=== PATIENT | male | born 1960 | race Caucasian/White ===

== ENCOUNTER 2019-12-17 18:58 | Inpatient (IN) | payer OTHER ==
[~2019-12-17] VITALS: Ht 182.9 cm; Wt 123.8 kg
[2019-12-17 19:10] VITALS: BP 131/84
[2019-12-17] MEDS ORDERED: VENTOLIN HFA 1818 GM INH (19:12)
[2019-12-17] MEDS ORDERED: BACTRIM DS TAB1 EAC1 PO (19:12)
[2019-12-17 19:49] LABS: ABSOLUTE BASOPHILS 0.1 thou/uL (0.0-0.2); ABSOLUTE MONOCYTES 0.4 thou/uL (0.0-1.2); ABSOLUTE NEUTROPHILS 4.8 thou/uL (1.6-8.1); BASOPHILS 0.8 %; EOSINOPHILS 0.2 %; HEMATOCRIT 40.3 % (42.0-52.0); LYMPHOCYTES 15.4 %; MCH 29.7 pg (26.0-34.0); MCHC 34.8 g/dL (28.0-37.0); MCV 85.1 fL (80.0-100.0); MONOCYTES 6.1 %; MPV 9.1 fl. (7.2-11.1); NUCLEATED RBCS 0 /100WBC; PLATELET COUNT* 211 thou/uL (150-400); POLYS 77.5 %; RBC 4.73 mil/uL (4.50-6.00); RDW-CV 14.1 % (10.5-14.5); WBC 6.2 thou/uL (4.0-11.0)
[2019-12-17 19:55] LABS: BE -0.6 mmol/L (-2 to +3); PCO2 26.3 mmHg (35.0-45.0); PO2 74.5 mmHg (75.0-100.0); pH 7.516 (7.340-7.450)
[2019-12-17 19:58] LABS: CALCIUM 8.6 mg/dL (8.5-10.1); POTASSIUM 3.5 mmol/L (3.5-5.1)
[2019-12-17 20:00] VITALS: BP 137/81
[2019-12-17 20:03] LABS: ALBUMIN 2.9 g/dL (3.4-5.0); MAGNESIUM 2.1 mg/dL (1.8-2.4); TOTAL BILIRUBIN 0.7 mg/dL (<0.1-1.0); TOTAL PROTEIN 7.5 g/dL (6.4-8.2)
[2019-12-17 20:05] LABS: INFLUENZA A ANTIGEN Negative (Negative); INFLUENZA B ANTIGEN Negative (Negative)
[2019-12-17 22:07] VITALS: BP 125/80
[2019-12-17 23:00] VITALS: BP 137/81
[2019-12-17 23:35] LABS: URINE CLARITY CLEAR; URINE COLOR YELLOW; URINE GLUCOSE-RANDOM NEGATIVE (Negative); URINE KETONES NEGATIVE (Negative); URINE LEUKOCYTES-REFLEX NEGATIVE (Negative); URINE NITRITE-REFLEX NEGATIVE (Negative); URINE PROTEIN 1+ (Negative); URINE UROBILINOGEN 0.2 E.U./dl (0.2-1.0)
[2019-12-17 23:41] LABS: URINE BILIRUBIN 1+ (Negative); URINE BLOOD NEGATIVE (Negative)
[2019-12-17 23:42] LABS: ICTOTEST (BILI CONFIRMATORY) Negative (Negative)
[2019-12-18 04:52] VITALS: BP 122/77
[2019-12-18] MEDS ORDERED: VITAMIN D3250 MC1 PO (06:58)
[2019-12-18] MEDS ORDERED: ZINC SULFATE220 MG PO (06:58)
[2019-12-18 07:45] VITALS: BP 129/69
--- NOTE | 2019-12-18 08:28 | EKG ---
[place] [address] ELECTROCARDIOGRAM REPORT Name: ANGELADEVANTE Room: [address] ADM IN M.R.#: [id number] Admission: 12/17/19 Attend Phys: Gee Ramirez Discharge: Date of : 62 Date of Service: 12/17/191926 Report #: [id number] THIS REPORT FOR: //name// [facility] ED Test Date: 2019-12-17 Test Time: 19:27:03 Pat Name: DEVANTE MILLER Department: Room: [facility] Gender: M General Neurologist: LUIS : 1960 Requested By: Belem Ortiz Order Number: [id number] MD: Hero Horowitz Measurements Intervals [place] Rate: 115 P: 6 MD: 161 QRS: 22 QRSD: 96 T: 11 QT: 294 QTc: 407 Interpretive Statements Sinus tachycardia No previous ECG available for comparison Electronically Signed On 12-18-2019 8:28:07 CDT by Hero Horowitz [email or web address] <ELECTRONICALLY SIGNED> By: Hero Horowitz MD, [facility] 12/18/19827 26 26 Hero Horowitz MD, [facility] /EPI
[2019-12-18 12:00] VITALS: BP 116/74
[2019-12-18 13:43] LABS: CALCIUM 8.5 mg/dL (8.5-10.1); CREATININE 0.8 mg/dL (0.6-1.3); POTASSIUM 3.5 mmol/L (3.5-5.1)
[2019-12-18 13:46] LABS: MAGNESIUM 2.1 mg/dL (1.8-2.4); PHOSPHORUS* 2.5 mg/dL (2.5-4.9)
[2019-12-18 16:00] VITALS: BP 123/81
[2019-12-18 18:41] LABS: INR 1.1
[2019-12-18 20:34] VITALS: BP 145/92
[2019-12-18 23:56] VITALS: BP 114/73
[2019-12-19 04:00] VITALS: BP 130/86
[2019-12-19 05:10] LABS: ABSOLUTE LYMPHOCYTES 0.8 thou/uL (0.8-5.3); ABSOLUTE MONOCYTES 0.2 thou/uL (0.0-1.2); ABSOLUTE NEUTROPHILS 4.9 thou/uL (1.6-8.1); BASOPHILS 0.2 %; HEMATOCRIT 37.3 % (42.0-52.0); HEMOGLOBIN 12.8 gm/dL (14.0-18.0); LYMPHOCYTES 14.2 %; MCH 29.5 pg (26.0-34.0); MCHC 34.3 g/dL (28.0-37.0); MCV 86.1 fL (80.0-100.0); MONOCYTES 3.5 %; MPV 9.2 fl. (7.2-11.1); NUCLEATED RBCS 0 /100WBC; PLATELET COUNT* 244 thou/uL (150-400); POLYS 82.1 %; RBC 4.33 mil/uL (4.50-6.00); RDW-CV 14.2 % (10.5-14.5); WBC 5.9 thou/uL (4.0-11.0)
[2019-12-19 05:38] LABS: ALBUMIN 2.4 g/dL (3.4-5.0); CALCIUM 8.7 mg/dL (8.5-10.1); CREATININE 0.8 mg/dL (0.6-1.3); MAGNESIUM 2.3 mg/dL (1.8-2.4); POTASSIUM 3.7 mmol/L (3.5-5.1); TOTAL BILIRUBIN 0.5 mg/dL (<0.1-1.0); TOTAL PROTEIN 7.1 g/dL (6.4-8.2)
[2019-12-19 09:00] VITALS: BP 124/77
[2019-12-19 12:10] VITALS: BP 130/76
[2019-12-19 16:00] VITALS: BP 130/72
[2019-12-19 20:39] VITALS: BP 131/75
[2019-12-20] VITALS: BP 126/72
[2019-12-20 04:00] VITALS: BP 145/86
[2019-12-20 05:46] LABS: HEMATOCRIT 38.5 % (42.0-52.0); HEMOGLOBIN 13.2 gm/dL (14.0-18.0); MCH 29.1 pg (26.0-34.0); MCHC 34.2 g/dL (28.0-37.0); MCV 85.1 fL (80.0-100.0); MPV 9.3 fl. (7.2-11.1); NUCLEATED RBCS 0 /100WBC; PLATELET COUNT* 313 thou/uL (150-400); RBC 4.52 mil/uL (4.50-6.00); RDW-CV 14.1 % (10.5-14.5); WBC 15.2 thou/uL (4.0-11.0)
[2019-12-20 05:59] LABS: ALBUMIN 2.4 g/dL (3.4-5.0); CALCIUM 8.9 mg/dL (8.5-10.1); CREATININE 0.9 mg/dL (0.6-1.3); MAGNESIUM 2.1 mg/dL (1.8-2.4); POTASSIUM 3.7 mmol/L (3.5-5.1); TOTAL BILIRUBIN 0.4 mg/dL (<0.1-1.0); TOTAL PROTEIN 6.9 g/dL (6.4-8.2)
[2019-12-20 07:30] LABS: ABSOLUTE LYMPHOCYTES 1.4 thou/uL (0.8-5.3); ABSOLUTE MONOCYTES 0.6 thou/uL (0.0-1.2); ABSOLUTE NEUTROPHILS 13.2 thou/uL (1.6-8.1); ANISOCYTOSIS 1+; PLATELET ESTIMATE ADEQUATE; POIKILOCYTOSIS 1+
[2019-12-20 08:45] VITALS: BP 124/85
[2019-12-20 11:57] VITALS: BP 118/74
[2019-12-20 16:06] VITALS: BP 110/77
[2019-12-20 20:59] VITALS: BP 127/84
[2019-12-21 00:27] VITALS: BP 132/91
[2019-12-21 04:00] VITALS: BP 139/82
[2019-12-21 13:03] VITALS: BP 137/92
[2019-12-21 16:48] VITALS: BP 138/79
[2019-12-21 20:00] VITALS: BP 156/89
[2019-12-22] VITALS: BP 130/81
[2019-12-22 04:00] VITALS: BP 135/81
[2019-12-22] MEDS ORDERED: PREDNISONE 10 M10 MG PO (07:43)
[2019-12-22] MEDS ORDERED: DOXYCYCLINE 10100 MG PO (07:43)
[2019-12-22 08:30] VITALS: BP 134/87
[2019-12-22 12:06] VITALS: BP 134/87
--- NOTE | 2019-12-24 12:58 | CON ---
[address] [address] CONSULTATION Name: DEVANTE MILLER JR Room: [address]#: [id number] Admission: 12/17/19 Attend Phys: Gee Abarca, Discharge: 12/22/19 Date of : 62 Report #: [id number] THIS REPORT FOR: //name// cc: Isabel Brooks MD, Ami MD ~ DATE OF SERVICE: 12/18/2019 CONSULT REQUESTED BY: Piotr Nolan DO. INDICATION FOR CONSULTATION: Acute hypoxemic respiratory failure. HISTORY OF PRESENT ILLNESS: This is a 59-year-old gentleman who has an extensive history of smoking in the past. He has not been diagnosed with cardiac or respiratory disease in the past; however, it is possible that he has previously undiagnosed chronic obstructive pulmonary disease as well as previously undiagnosed obstructive sleep apnea. The patient's is reported to be positive for COVID-19. The patient has had close contact with his . The patient has now presented with increasing shortness of breath over the last 2-3 days. He has also had headaches. He has been fatigued. He has been having fever and chills. The patient has also been hypoxemic. Currently, he is requiring 5 liters of oxygen to maintain O2 saturation in the low 90s. The patient's initial O2 saturation was 83% on room air. The patient's chest x-ray shows extensive infiltrates. Since admission yesterday, the patient has received corticosteroids. He does report some improvement in his shortness of breath since yesterday. REVIEW OF SYSTEMS. The patient answered to the negative for 12 questions for review of systems except as mentioned above. PAST MEDICAL HISTORY: Knee surgery, shoulder surgery, hypoglycemia, etiology not known to me. CURRENT MEDICATIONS: List in Going reviewed. HOME MEDICATIONS: List in Going reviewed. While not having a diagnosis of obstructive lung disease on the records, note that he is on albuterol inhaler at home p.r.n. FAMILY HISTORY: has COVID-19. SOCIAL HISTORY: Extensive history of smoking more than a pack a day, but discontinued about 10 years ago. He uses about 12 bottles of alcohol likely beer a week. No known history of illegal drug use. ALLERGIES: [place] [address] CONSULTATION Name: DEVANTE MILLER JR Room: [address]#: [id number] Admission: 12/17/19 Attend Phys: Gee Abarca, Discharge: 12/22/19 Date of : 62 Report #: [id number] PHYSICAL EXAMINATION: GENERAL: He is alert, awake and oriented. He is sitting comfortably in a chair. VITAL SIGNS: He has a pulse of 92 and a blood pressure of 123/81. He is on 5 liters of nasal cannula, last O2 saturation is 94%. He is afebrile with a temperature of 36.3. Earlier today, he had a high-grade fever of 38.8 degrees Celsius. The respiratory rate is 18. HEENT: Head is normocephalic and atraumatic. NECK: Does not show raised JVP, asymmetry, mass or lymph nodes. CHEST: Symmetrical expansion on inspection and palpation. On auscultation, breath sounds are significantly decreased. Expirations are prolonged. I do not hear any added sounds. HEART: Regular. There is no murmur. ABDOMEN: Soft and nontender. EXTREMITIES: Lower extremities do show trace edema bilaterally. SKIN: Dry and intact. NEUROLOGICAL: Moves all extremities bilaterally equally and spontaneously with no focal deficit identified. LABORATORY DATA: The patient's chest x-ray from yesterday shows extensive bilateral infiltrates consistent with COVID-19. The patient's lab work is in Going and this is reviewed. The patient's COVID-19 antigen is negative; however, his COVID PCR is pending. The patient's lab work is in Going and this is reviewed. I just ordered coagulation studies, these are pending at this time. ASSESSMENT AND PLAN: 1. Acute hypoxemic respiratory failure. The patient's history is consistent with COVID-19 leading to acute respiratory failure. There does appear to be a component of bronchospasm as well. In addition, he may have secondary bacterial infection as well. 2. COVID-19 at this time, I would treat him as COVID-19. Note that his antigen is negative, but his history is strongly consistent with COVID-19, also his with whom he has had close contact is known to have COVID-19. Therefore, even if the PCR is negative, I will be inclined to repeat it and in that case, we will likely get COVID-19 antibodies. Meantime, we will continue to treat him as COVID-19. I am increasing the dose of steroids as below. In addition, I will go ahead and start him on remdesivir. 3. Pulmonary infiltrates. I will also treat him for possible secondary bacterial infections. Doxycycline and ceftriaxone are ordered. If able to, I recommend obtaining a nasal swab for methicillin-resistant Staphylococcus aureus as well as a sputum culture. 4. Bronchospasm/suspected chronic obstructive pulmonary disease exacerbation. It appears likely to me that the patient has underlying chronic obstructive pulmonary disease. Physical examination findings today are consistent with a [address] [place] [address] CONSULTATION Name: DEVANTE MILLER JR Room: [address]#: [id number] Admission: 12/17/19 Attend Phys: Gee Abarca, Discharge: 12/22/19 Date of : 62 Report #: [id number] component of bronchospasm. We therefore increased the dose of dexamethasone. We will also order albuterol via inhaler. In case the patient's condition worsens, we will consider transferring him to a negative pressure room for administration of nebulizers. 5. Suspected underlying obstructive sleep apnea. Body mass index is elevated. Again if he worsens, I would recommend that in that case, consider transferring him to a negative pressure room for administration for BiPAP while asleep. I held off for now. 6. Edema of lower extremity/evaluation for thromboembolic phenomena. We will check D-dimer. If D-dimer is elevated, then I will check venous Dopplers and then we will also assess as to whether we should consider doing a CTA chest. Meanwhile, I just ordered one dose of Aldactone, which will provide some diuresis and may also help bring his potassium up. Note that his blood pressure is on the lower side; therefore, I did not give him Lasix now. Also, it is possible that we do a CTA chest as above. He may need Lasix later. 7. Deep venous thrombosis prophylaxis, Lovenox. 8. Gastrointestinal prophylaxis, Protonix. 9. Clostridium difficile prophylaxis, Florastor. Thanks for this consultation. <ELECTRONICALLY SIGNED> By: Mannie Mayorga MD 12/24/19 1258 1737 1949Amariana Mayorga MD /nt
== END 2019-12-22 13:40 | disposition home or self-care (01) | DRG 177 ==
LOC: M.ERS 18:58 → M.2W 20:23 → M.TBA-ER 20:23 → M.2W 20:58
PROVIDERS: Internal Medicine; Internal Medicine Critical Care Medicine; Personal Emergency Response Attendant; ADMIT Family Medicine; ATTEND Family Medicine
PROC: XW033E5 Introduction of Remdesivir Anti-infective into Peripheral Vein, Percutaneous Approach, New Technology Group 5 (ICD-10-PCS; principal; 2019-12-18)
DX: U07.1 COVID-19 (principal); J12.89 Other viral pneumonia; J15.6 Pneumonia due to other Gram-negative bacteria; J96.01 Acute respiratory failure with hypoxia; J44.0 Chronic obstructive pulmonary disease with (acute) lower respiratory infection; Z79.899 Other long term (current) drug therapy; Z87.891 Personal history of nicotine dependence; G47.33 Obstructive sleep apnea (adult) (pediatric)